=== PATIENT | male | born 1965 | race Caucasian/White ===

== ENCOUNTER 2016-10-13 10:51 | Emergency (ER) | payer SELFPAY ==
[2016-10-13 12:09] VITALS: BP 124/68
--- NOTE | 2016-10-13 12:18 | UC ---
Lower Extremity/Ankle HPI - HPI Summary HPI Summary: Pt presents with c/o left calf swelling and pain as well as left side posterior back pain and dyspnea X 1 day. Pt reports that he has been traveling form [place] and arrived in [facility] and began riding his motorcycle to travel to [place]. Pt has family history of DVT and PE, mother and brother - History of Current Complaint Chief Complaint: UCRespiratory Stated Complaint: BACK PAIN Time Seen by Provider: 10/13/16 11:17 Hx Obtained From: Patient Onset/Duration: Gradual Onset, Lasting Days, Worse Since - onset Severity Initially: Mild Severity Currently: Moderate Pain Intensity: 8 Pain Scale Used: 0-10 Numeric Aggravating Factor(s): Ambulation Alleviating Factor(s): Nothing Able to Bear Weight: Yes - Risk Factors Gout Risk Factors: Age Over 40 DVT Risk Factors: Smoking, Family Hx of Clotting Disorder Septic Arthritis Risk Factor: Negative - Allergies/Home Medications Allergies/Adverse Reactions: Allergies Allergy/AdvReac Type Severity Reaction Status Date / Time No Known Allergies Allergy Verified 10/13/16 11:06 Home Medications: Home Medications Nimesulide 200 mg PO Q5H PRN 10/13/16 [History] PMH/Surg Hx/FS Hx/Imm Hx Previously Healthy: Yes - Surgical History Surgical History: Yes Surgery Procedure, Year, and Place: right foot surgery 2016 - Family History Known Family History: Positive: Blood Disorder - mother and brother - Social History Occupation: Employed Full-time Lives: With Family Alcohol Use: Daily Substance Use Type: None Smoking Status (MU): Heavy Every Day Tobacco Smoker Type: Cigarettes Amount Used/How Often: 1/2 PPD Length of Time of Smoking/Using Tobacco: Since Age 22 Review of Systems Constitutional: Negative Skin: Negative Eyes: Negative ENT: Negative Respiratory: Shortness Of Breath, Other - dyspnea Cardiovascular: Negative Gastrointestinal: Negative Genitourinary: Negative Motor: Negative Neurovascular: Negative Musculoskeletal: Edema - left calf, Neurological: Negative Psychological: Negative All Other Systems Reviewed And Are Negative: Yes Physical Exam Triage Information Reviewed: Yes Appearance: Well-Appearing Vital Signs: Initial Vital Signs Temp 99.6 F 10/13/16 11:34 Pulse 96 10/13/16 11:34 Resp 18 10/13/16 11:34 BP 127/94 10/13/16 11:34 Pulse Ox 98 07/23/17 11:34 Vital Signs Reviewed: Yes Eye Exam: Normal ENT Exam: Normal Dental Exam: Normal Neck exam: Normal Respiratory: Positive: Decreased breath sounds - bilateral bases, c/o pain with inspiration, also, c/o of inability "to take" deep breath", pain is not reproducible Cardiovascular Exam: Other Cardiovascular: Positive: Tachycardia - 96, pt is an athlete, 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 Abdominal Exam: Normal Musculoskeletal Exam: Other Musculoskeletal: Positive: Edema @ - left calf, measure 16 inches, reight measures 14.5 inches Neurological Exam: Normal Psychological Exam: Normal Skin Exam: Normal Lower Extremity Course/Dx - Course Course Of Treatment: I explained to the pt that I had a concern for DVT and PE. Pt verbalized understanding and agreed to plan to of care. - Differential Dx/Diagnosis Differential Diagnosis/HQI/PQRI: DVT, Other - PE Provider Diagnoses: possible DVT. Possible PE - Physician Notifications Discussed Patient Care With: Dr. Greer Time Discussed With Above Provider: 12:10 Discharge - Discharge Plan Condition: Stable Disposition: TRANS [facility] OF CARE FAC Patient Education Materials: Leg Pain (ED) Referrals: [facility] PHYSICIAN REFERRAL [Outside] Additional Instructions: Please go to [facility] ER for further evaluation of possibility of DVT and PE.
== END 2016-10-13 12:08 | disposition short-term general hospital (02) ==
LOC: UCCORT 10:51
DX: M79.89 Other specified soft tissue disorders (principal); M79.662 Pain in left lower leg; M54.9 Dorsalgia, unspecified; R06.00 Dyspnea, unspecified; Z84.89 Family history of other specified conditions; Z72.0 Tobacco use
CPT/HCPCS: 99203; G0463

== ENCOUNTER 2016-11-18 11:32 | Emergency (ER) | payer SELFPAY ==
--- NOTE | 2016-11-18 11:47 | UC ---
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 HE WAS SEEN AT [facility] AND A [id number] WORKUP INCLUDING CARDIAC ECHO WAS DONE. HE IS CONCERNED ABOUT TRAVELING AND RIDING HIS MOTORCYCLE SO I WILL REFER HIM TO DR BURROWS FOR FURTHER IMAGING, LAB WORK ETC IF NEEDED. - History of Current Complaint Stated Complaint: LOWER LEG PAIN Time Seen by Provider: 11/18/16 11:46 Onset/Duration: Sudden Onset Severity Initially: Moderate Severity Currently: Moderate Pain Scale Used: 0-10 Numeric - 5 Aggravating Factor(s): Ambulation Alleviating Factor(s): Rest, Elevation - Allergies/Home Medications Allergies/Adverse Reactions: Allergies Allergy/AdvReac Type Severity Reaction Status Date / Time No Known Allergies Allergy Verified 11/18/16 11:56 Home Medications: Home Medications Rivaroxaban TAB(*) [Xarelto 20 mg] 20 mg PO DAILY 11/18/16 [History Confirmed ] PMH/Surg Hx/FS Hx/Imm Hx - Surgical History Surgical History: Yes Surgery Procedure, Year, and Place: right foot surgery 2016 - Family History Known Family History: Positive: Blood Disorder - mother and brother - Social History Alcohol Use: Daily Substance Use Type: None Smoking Status (MU): Heavy Every Day Tobacco Smoker Type: Cigarettes Amount Used/How Often: 1/2 PPD Length of Time of Smoking/Using Tobacco: Since Age 22 Review of Systems Constitutional: Negative Skin: Negative Eyes: Negative ENT: Negative Respiratory: Negative Cardiovascular: Negative Gastrointestinal: Negative Genitourinary: Negative Motor: Negative Neurovascular: Negative Musculoskeletal: Other: - RIGHT LEG PAIN Neurological: Negative Psychological: Negative All Other Systems Reviewed And Are Negative: Yes Physical Exam Triage Information Reviewed: Yes Eye Exam: Normal ENT Exam: Normal Dental Exam: Normal Neck exam: Normal Neck: Positive: 1 Respiratory Exam: Normal Cardiovascular Exam: Normal Abdominal Exam: Normal Musculoskeletal: Positive: Other: - RIGHT LEG PAIN Neurological Exam: Normal Psychological Exam: Normal Skin Exam: Normal Lower Extremity Course/Dx - Differential Dx/Diagnosis Provider Diagnoses: PE. RIGHT SIDED DVT Discharge - Discharge Plan Condition: Stable Disposition: HOME Patient Education Materials: Deep Venous Thrombosis (ED) Referrals: Non Staff,Doctor [Primary Care Provider] -
[2016-11-18 11:55] VITALS: BP 134/97
== END 2016-11-18 13:15 | disposition home or self-care (01) ==
LOC: UCCORT 11:32
DX: I26.99 Other pulmonary embolism without acute cor pulmonale (principal); I82.401 Acute embolism and thrombosis of unspecified deep veins of right lower extremity; F17.210 Nicotine dependence, cigarettes, uncomplicated
CPT/HCPCS: 99211; G0463